=== PATIENT | male | born 1960 | race Caucasian/White ===

== ENCOUNTER 2016-11-21 16:13 | Emergency (ER) | payer MEDICARE | END 2016-11-21 19:14 | disposition home or self-care (01) | LOC: ER 16:13 | DX: S05.02XA Injury of conjunctiva and corneal abrasion without foreign body, left eye, initial encounter (principal); W22.8XXA Striking against or struck by other objects, initial encounter; Y92.008 Other place in unspecified non-institutional (private) residence as the place of occurrence of the external cause; H54.41 Blindness, right eye, normal vision left eye; Z86.73 Personal history of transient ischemic attack (TIA), and cerebral infarction without residual deficits; B19.20 Unspecified viral hepatitis C without hepatic coma; Z79.01 Long term (current) use of anticoagulants; Z79.899 Other long term (current) drug therapy; Z88.0 Allergy status to penicillin ==

== ENCOUNTER 2016-11-23 21:26 | Emergency (ER) | payer MEDICARE | END 2016-11-24 02:23 | disposition home or self-care (01) | LOC: ER 21:26 | DX: M71.9 Bursopathy, unspecified (principal); Z86.73 Personal history of transient ischemic attack (TIA), and cerebral infarction without residual deficits; F41.9 Anxiety disorder, unspecified; Z95.1 Presence of aortocoronary bypass graft; Z95.0 Presence of cardiac pacemaker; Z95.2 Presence of prosthetic heart valve; Z79.899 Other long term (current) drug therapy; Z79.01 Long term (current) use of anticoagulants; Z88.0 Allergy status to penicillin; Z88.6 Allergy status to analgesic agent | CPT/HCPCS: 99282 ==

== ENCOUNTER 2017-01-03 21:02 | Emergency (ER) | payer MEDICARE | END 2017-01-03 21:07 | disposition home or self-care (01) | LOC: ER 21:02 | DX: M54.9 Dorsalgia, unspecified (principal); G89.29 Other chronic pain; Z95.2 Presence of prosthetic heart valve; Z95.0 Presence of cardiac pacemaker; Z88.8 Allergy status to other drugs, medicaments and biological substances; Z79.01 Long term (current) use of anticoagulants; Z79.899 Other long term (current) drug therapy | CPT/HCPCS: 99282; 99283 ==

== ENCOUNTER 2017-01-30 20:19 | Emergency (ER) | payer MEDICARE | END 2017-01-31 03:07 | disposition home or self-care (01) | LOC: ER 20:19 | DX: K08.89 Other specified disorders of teeth and supporting structures (principal); I51.9 Heart disease, unspecified; Z86.19 Personal history of other infectious and parasitic diseases; F41.9 Anxiety disorder, unspecified; Z88.0 Allergy status to penicillin; Z88.6 Allergy status to analgesic agent | CPT/HCPCS: 99282 ==